=== PATIENT | female | born 1950 | race Caucasian/White ===

== ENCOUNTER 2024-05-15 13:05 | Inpatient (IN) ==
[2024-05-15 14:12] LABS: ABS Basophils 0.1 10^3/uL (0.0-0.1); ABS Eosinophils 0.3 10^3/uL (0.0-0.5); ABS Lymphocytes 1.5 10^3/uL (1.0-4.8); ABS Monocytes 0.6 10^3/uL (0.0-0.9); ABS Neutrophils 3.7 10^3/uL (1.5-7.6); Eosinophil % 5.5 %; Hematocrit 28.3 % (35-45); Hemoglobin 9.5 g/dL (11.5-14.3); Lymphocyte % 24.6 %; Mean Corpuscular Hemoglobin 32.3 pg (27-33); Mean Corpuscular Hgb Conc 33.4 g/dL (31-36); Mean Corpuscular Volume 96.7 fL (80-97); Mean Platelet Volume 9.7 fL (7.5-11.2); Platelet Count 177 10^3/uL (150-450); Red Blood Count 2.93 10^6/uL (3.63-4.92); Red Cell Distribution Width 14.3 % (12-17); White Blood Count 6.3 10^3/uL (3.8-11.8)
[2024-05-15] MEDS: NS 0.9% 1000 ml BAG 1,000 ML IV ONE (14:41)
[2024-05-15 14:45] LABS: Urine Appearance Clear; Urine Bacteria Absent /HPF (Absent); Urine Bilirubin Negative (Negative); Urine Blood Trace (Negative); Urine Color Light-Yellow; Urine Glucose 4+ (>=1000 mg/dL) (Negative); Urine Ketones Negative (Negative); Urine Nitrite Negative (Negative); Urine Protein 1+ (>=30 mg/dL) (Negative); Urine Red Blood Cell Absent /HPF (0-Trace); Urine Squamous Epithelial Cell Present /HPF (Absent); Urine Transitional Epithelial Present /HPF (Absent); Urine Urobilinogen Negative (Negative); Urine White Blood Cell Trace(0-5/hpf) /HPF (0-Trace); Urine pH 5.5 (5.0-8.0)
[2024-05-15 15:07] LABS: Albumin 4.1 g/dL (3.2-5.2); C Reactive Protein 3.08 mg/L (<8.01); Calcium 11.1 mg/dL (8.6-10.3); Creatinine, Serum 2.01 mg/dL (0.51-0.95); Globulin 4.1 g/dL (2-4); Magnesium 1.1 mg/dL (1.9-2.7); Potassium 4.3 mmol/L (3.5-5.0); Total Bilirubin 0.4 mg/dL (0.2-1.0); Total Protein 8.2 g/dL (6.4-8.9); eGFR CKD-EPI 25.3 (>60)
[2024-05-15] MEDS: Magnesium Sulfate 2 gm BAG 2 GM/50 ML BAG IVPB ONE ×2 (17:23→21:27)
[2024-05-15] MEDS ORDERED: Acetaminophen IV 1 GM/100ML 1,000 MG/100 ML BAG IV PRN (18:26)
[2024-05-15] MEDS ORDERED: HYDROmorphone 0.5 MG/0.5 ML SYRINGE IV PRN (18:28)
[2024-05-15] MEDS ORDERED: Polyethylene Glycol 3350 17 GM PACKET PO PRN (19:26)
[2024-05-15] MEDS ORDERED: Senna TAB 8.6 mg TAB PO PRN (19:26)
[2024-05-15] MEDS ORDERED: Dextrose 50% Syringe 50 ml 25 GM/50 ML SYRINGE IV PUSH PRN (19:28)
[2024-05-15] MEDS ORDERED: Naloxone 0.4 mg VIAL 0.4 mg/ml 1 ml VIAL IV PUSH SCH (20:00)
[2024-05-15] MEDS: Ondansetron 4 mg VIAL 2 MG/ML 2 ml VIAL IV ONE (21:17)
[2024-05-15] MEDS: NS 0.9% 1000 ml BAG 1,000 ML IV SCH (21:27)
[2024-05-15] MEDS: Enoxaparin 30 MG/0.3 ML SYR SUBCUT SCH (21:28)
[2024-05-16 06:23] LABS: ABS Eosinophils 0.3 10^3/uL (0.0-0.5); ABS Lymphocytes 1.5 10^3/uL (1.0-4.8); ABS Monocytes 0.6 10^3/uL (0.0-0.9); ABS Neutrophils 3.1 10^3/uL (1.5-7.6); Eosinophil % 4.8 %; Hematocrit 25.3 % (35-45); Hemoglobin 8.1 g/dL (11.5-14.3); Lymphocyte % 27.6 %; Mean Corpuscular Hemoglobin 31.5 pg (27-33); Mean Corpuscular Hgb Conc 32.2 g/dL (31-36); Mean Corpuscular Volume 97.6 fL (80-97); Mean Platelet Volume 9.8 fL (7.5-11.2); Nucleated Red Blood Cells % 0.1 %/100WBC (0.0-0.8); Platelet Count 145 10^3/uL (150-450); Red Blood Count 2.59 10^6/uL (3.63-4.92); Red Cell Distribution Width 14.2 % (12-17); White Blood Count 5.5 10^3/uL (3.8-11.8)
[2024-05-16 06:53] LABS: Calcium 10.2 mg/dL (8.6-10.3); Creatinine, Serum 1.84 mg/dL (0.51-0.95); Magnesium 2.3 mg/dL (1.9-2.7); Phosphorus 4.8 mg/dL (2.5-5.0); Potassium 4.1 mmol/L (3.5-5.0); eGFR CKD-EPI 28.1 (>60)
[2024-05-16] MEDS: HYDROmorphone 0.5 MG/0.5 ML SYRINGE IV PRN ×2 (09:17→18:11)
[2024-05-16] MEDS: Ondansetron 4 mg VIAL 2 MG/ML 2 ml VIAL IV PRN (09:18)
[2024-05-16 10:15] LABS: Albumin 3.5 g/dL (3.2-5.2); Direct Bilirubin 0.1 mg/dL (0.03-0.18); Globulin 3.4 g/dL (2-4); Indirect Bilirubin 0.2 mg/dL (0.3-1.0); Total Bilirubin 0.3 mg/dL (0.2-1.0); Total Protein 6.9 g/dL (6.4-8.9)
[2024-05-16] MEDS ORDERED: NS 0.9% 1000 ml BAG 1,000 ML IV SCH (18:45)
[2024-05-16] MEDS: NS 0.9% 1000 ml BAG 1,000 ML IV SCH (19:25)
[2024-05-16] MEDS: Metoclopramide 5 MG/ML VIAL (10 mg) IV SLOW PU ONE (20:56)
[2024-05-16] MEDS: Heparin 5000 UNITS/ML 1 mL VIAL SUBCUT ONE (22:00)
[2024-05-17 05:12] LABS: ABS Eosinophils 0.2 10^3/uL (0.0-0.5); ABS Lymphocytes 1.4 10^3/uL (1.0-4.8); ABS Monocytes 0.5 10^3/uL (0.0-0.9); ABS Neutrophils 3.4 10^3/uL (1.5-7.6); Eosinophil % 3.4 %; Hematocrit 23.5 % (35-45); Lymphocyte % 25.2 %; Mean Corpuscular Hemoglobin 32.9 pg (27-33); Mean Corpuscular Volume 96.9 fL (80-97); Mean Platelet Volume 9.6 fL (7.5-11.2); Nucleated Red Blood Cells % 0.1 %/100WBC (0.0-0.8); Platelet Count 127 10^3/uL (150-450); Red Blood Count 2.43 10^6/uL (3.63-4.92); Red Cell Distribution Width 14.6 % (12-17); White Blood Count 5.4 10^3/uL (3.8-11.8)
[2024-05-17 05:49] LABS: Calcium 9.8 mg/dL (8.6-10.3); Creatinine, Serum 1.93 mg/dL (0.51-0.95); Potassium 4.1 mmol/L (3.5-5.0); eGFR CKD-EPI 26.5 (>60)
[2024-05-17] MEDS: Lidocaine 2% PF 5 ML VIAL INJ ONE ×2 (07:42→10:11)
[2024-05-17 09:02] LABS: Phosphorus 4.4 mg/dL (2.5-5.0)
[2024-05-17 09:30] LABS: Vitamin D Total 25(OH) 8.5 ng/mL (20-50)
[2024-05-17 12:47] LABS: Calcium (PTH Intact) 9.5 mg/dL (8.6-10.3)
[2024-05-17] MEDS: NS 0.9% 1000 ml BAG 1,000 ML IV SCH (22:28)
[2024-05-18 06:16] LABS: ABS Eosinophils 0.2 10^3/uL (0.0-0.5); ABS Lymphocytes 1.2 10^3/uL (1.0-4.8); ABS Monocytes 0.6 10^3/uL (0.0-0.9); ABS Neutrophils 3.7 10^3/uL (1.5-7.6); ABS Nucleated RBC 0.01 10^3/ul; Eosinophil % 4.2 %; Hematocrit 23.1 % (35-45); Hemoglobin 7.8 g/dL (11.5-14.3); Lymphocyte % 20.8 %; Mean Corpuscular Hgb Conc 33.9 g/dL (31-36); Mean Corpuscular Volume 97.5 fL (80-97); Mean Platelet Volume 9.6 fL (7.5-11.2); Nucleated Red Blood Cells % 0.1 %/100WBC (0.0-0.8); Platelet Count 131 10^3/uL (150-450); Red Blood Count 2.37 10^6/uL (3.63-4.92); Red Cell Distribution Width 14.1 % (12-17); White Blood Count 5.7 10^3/uL (3.8-11.8)
[2024-05-18 06:42] LABS: Calcium 9.9 mg/dL (8.6-10.3); Creatinine, Serum 1.84 mg/dL (0.51-0.95); Magnesium 1.4 mg/dL (1.9-2.7); Potassium 3.8 mmol/L (3.5-5.0); eGFR CKD-EPI 28.1 (>60)
[2024-05-18 07:08] LABS: Folate 14.5 ng/mL (5.90-24.80)
[2024-05-18] MEDS: Magnesium Sulf 4 GM/100 ML IV 4,000 MG/100 ML BAG IVPB ONE (09:10)
[2024-05-18] MEDS: NS 0.9% 1000 ml BAG 1,000 ML IV ONE (09:10)
[2024-05-18] MEDS ORDERED: Ondansetron 4 mg VIAL 2 MG/ML 2 ml VIAL IV PRN ×2 (09:25→15:47)
[2024-05-18 10:03] LABS: Albumin 3.2 g/dL (3.2-5.2); Direct Bilirubin 0.1 mg/dL (0.03-0.18); Globulin 3.2 g/dL (2-4); Indirect Bilirubin 0.3 mg/dL (0.3-1.0); Total Bilirubin 0.4 mg/dL (0.2-1.0); Total Protein 6.4 g/dL (6.4-8.9)
[2024-05-18] MEDS: Enoxaparin 30 MG/0.3 ML SYR SUBCUT SCH (16:28)
[2024-05-18] MEDS: NS 0.9% 1000 ml BAG 1,000 ML IV SCH (17:22)
[2024-05-19] MEDS: hydrALAZINE 20 mg/ml 1 ML Vial IV IV SLOW PU ONE (03:01)
[2024-05-19 05:46] LABS: ABS Eosinophils 0.3 10^3/uL (0.0-0.5); ABS Monocytes 0.4 10^3/uL (0.0-0.9); ABS Neutrophils 3.4 10^3/uL (1.5-7.6); Eosinophil % 5.1 %; Hematocrit 24.3 % (35-45); Hemoglobin 8.2 g/dL (11.5-14.3); Lymphocyte % 19.5 %; Mean Corpuscular Hemoglobin 32.7 pg (27-33); Mean Corpuscular Hgb Conc 33.9 g/dL (31-36); Mean Corpuscular Volume 96.5 fL (80-97); Mean Platelet Volume 9.4 fL (7.5-11.2); Nucleated Red Blood Cells % 0.1 %/100WBC (0.0-0.8); Platelet Count 141 10^3/uL (150-450); Red Blood Count 2.52 10^6/uL (3.63-4.92); Red Cell Distribution Width 14.5 % (12-17); White Blood Count 5.1 10^3/uL (3.8-11.8)
[2024-05-19 06:01] LABS: Albumin 3.2 g/dL (3.2-5.2); Calcium 9.3 mg/dL (8.6-10.3); Creatinine, Serum 1.68 mg/dL (0.51-0.95); Globulin 3.2 g/dL (2-4); Magnesium 1.9 mg/dL (1.9-2.7); Potassium 3.4 mmol/L (3.5-5.0); Total Bilirubin 0.4 mg/dL (0.2-1.0); Total Protein 6.4 g/dL (6.4-8.9); eGFR CKD-EPI 31.3 (>60)
[2024-05-19] MEDS: Labetalol IV 5 MG/ML 20 ml VIAL IV PUSH ONE (06:25)
[2024-05-19] MEDS: NS 0.9% 1000 ml BAG 1,000 ML IV SCH (11:53)
[2024-05-19] MEDS: Dexamethasone IV 40 MG in NS 0.9% 50 ML 50 ML IVPB ONE (13:07)
[2024-05-20] MEDS: hydrALAZINE 20 mg/ml 1 ML Vial IV IV SLOW PU ONE (03:41)
[2024-05-20 07:41] LABS: Hematocrit 23.8 % (35-45); Hemoglobin 7.9 g/dL (11.5-14.3); Mean Corpuscular Hemoglobin 32.2 pg (27-33); Mean Corpuscular Hgb Conc 33.3 g/dL (31-36); Mean Corpuscular Volume 96.6 fL (80-97); Mean Platelet Volume 10.3 fL (7.5-11.2); Platelet Count 146 10^3/uL (150-450); Red Blood Count 2.46 10^6/uL (3.63-4.92); Red Cell Distribution Width 14.1 % (12-17); White Blood Count 5.5 10^3/uL (3.8-11.8)
[2024-05-20 07:54] LABS: Albumin 3.2 g/dL (3.2-5.2); Calcium 9.3 mg/dL (8.6-10.3); Creatinine, Serum 1.59 mg/dL (0.51-0.95); Globulin 3.3 g/dL (2-4); Potassium 3.8 mmol/L (3.5-5.0); Total Bilirubin 0.3 mg/dL (0.2-1.0); Total Protein 6.5 g/dL (6.4-8.9); eGFR CKD-EPI 33.5 (>60)
[2024-05-20] MEDS ORDERED: Dextrose 50% Syringe 50 ml 25 GM/50 ML SYRINGE IV PUSH PRN (12:26)
[2024-05-20] MEDS: Senna TAB 8.6 mg TAB PO SCH (20:41)
[2024-05-21 06:38] LABS: Hematocrit 22.1 % (35-45); Hemoglobin 7.3 g/dL (11.5-14.3); Mean Corpuscular Hemoglobin 32.1 pg (27-33); Mean Corpuscular Volume 97.5 fL (80-97); Mean Platelet Volume 9.7 fL (7.5-11.2); Platelet Count 158 10^3/uL (150-450); Red Blood Count 2.27 10^6/uL (3.63-4.92); Red Cell Distribution Width 14.6 % (12-17); White Blood Count 7.2 10^3/uL (3.8-11.8)
[2024-05-21 07:11] LABS: Albumin 3.2 g/dL (3.2-5.2); Albumin/Globulin Ratio 1.1 (1-3); Calcium 9.1 mg/dL (8.6-10.3); Creatinine, Serum 2.03 mg/dL (0.51-0.95); Potassium 3.6 mmol/L (3.5-5.0); Total Bilirubin 0.2 mg/dL (0.2-1.0); Total Protein 6.2 g/dL (6.4-8.9)
[2024-05-21 08:26] LABS: INR 1.03 (0.85-1.14)
[2024-05-21] MEDS: Polyethylene Glycol 3350 17 GM PACKET PO SCH (08:33)
[2024-05-21] MEDS: Insulin GLARGINE 100 un/ml 10 ml VIAL SUBCUT SCH (08:33)
[2024-05-21] MEDS ORDERED: oxyCODONE/Acetamin 5/325 mg TAB PO PRN (13:42)
[2024-05-21] MEDS: NS 0.9% 1000 ml BAG 1,000 ML IV SCH (15:30)
[2024-05-21] MEDS: fentaNYL 100 mcg/2 ml 50 MCG/ML VIAL ONE (23:40)
[2024-05-22 05:27] LABS: Hematocrit 25.3 % (35-45); Hemoglobin 8.4 g/dL (11.5-14.3); Mean Corpuscular Hemoglobin 31.5 pg (27-33); Mean Corpuscular Hgb Conc 33.2 g/dL (31-36); Mean Corpuscular Volume 94.7 fL (80-97); Mean Platelet Volume 9.6 fL (7.5-11.2); Platelet Count 152 10^3/uL (150-450); Red Blood Count 2.68 10^6/uL (3.63-4.92); Red Cell Distribution Width 16.6 % (12-17); White Blood Count 7.3 10^3/uL (3.8-11.8)
[2024-05-22 06:55] LABS: Creatinine, Serum 1.97 mg/dL (0.51-0.95); Potassium 3.7 mmol/L (3.5-5.0); eGFR CKD-EPI 25.9 (>60)
[2024-05-22] MEDS: Insulin GLARGINE 100 un/ml 10 ml VIAL SUBCUT SCH (08:14)
[2024-05-22 12:02] LABS: Uric Acid 5.5 mg/dL (2.3-6.6)
[2024-05-22 12:27] LABS: Calcium 8.8 mg/dL (8.6-10.3)
[2024-05-22] MEDS: Lactated Ringers 1000 ml BAG 1,000 ML IV SCH (12:30)
[2024-05-22] MEDS: oxyCODONE/Acetamin 5/325 mg TAB PO PRN (17:00)
[2024-05-23 06:22] LABS: ABS Eosinophils 0.4 10^3/uL (0.0-0.5); ABS Lymphocytes 1.3 10^3/uL (1.0-4.8); ABS Monocytes 0.6 10^3/uL (0.0-0.9); ABS Neutrophils 4.3 10^3/uL (1.5-7.6); Eosinophil % 5.5 %; Hematocrit 26.4 % (35-45); Hemoglobin 8.9 g/dL (11.5-14.3); Lymphocyte % 20.1 %; Mean Corpuscular Hemoglobin 31.8 pg (27-33); Mean Corpuscular Hgb Conc 33.6 g/dL (31-36); Mean Corpuscular Volume 94.5 fL (80-97); Mean Platelet Volume 9.8 fL (7.5-11.2); Platelet Count 145 10^3/uL (150-450); Red Blood Count 2.79 10^6/uL (3.63-4.92); Red Cell Distribution Width 16.4 % (12-17); White Blood Count 6.6 10^3/uL (3.8-11.8)
[2024-05-23 07:24] LABS: Calcium 8.7 mg/dL (8.6-10.3); Creatinine, Serum 1.73 mg/dL (0.51-0.95); eGFR CKD-EPI 30.2 (>60)
[2024-05-23] MEDS: Influenza Vaccine *TRI* 2024-25* 0.5 ML SYRINGE IM ONE (08:16)
[2024-05-23] MEDS: COVID VAC 24-25 (12+) (Moderna) Syringe 0.5 mL IM ONE (08:18)
[2024-05-23] MEDS: Lactated Ringers 1000 ml BAG 1,000 ML IV SCH (11:06)
[2024-05-23 22:40] LABS: Result Summary Normal
[2024-05-24 05:43] LABS: ABS Eosinophils 0.3 10^3/uL (0.0-0.5); ABS Lymphocytes 0.6 10^3/uL (1.0-4.8); ABS Monocytes 0.7 10^3/uL (0.0-0.9); ABS Neutrophils 4.5 10^3/uL (1.5-7.6); ABS Nucleated RBC 0.01 10^3/ul; Eosinophil % 4.6 %; Hemoglobin 9.1 g/dL (11.5-14.3); Lymphocyte % 9.9 %; Mean Corpuscular Hemoglobin 31.8 pg (27-33); Mean Corpuscular Hgb Conc 33.9 g/dL (31-36); Mean Corpuscular Volume 93.9 fL (80-97); Mean Platelet Volume 9.2 fL (7.5-11.2); Nucleated Red Blood Cells % 0.1 %/100WBC (0.0-0.8); Platelet Count 150 10^3/uL (150-450); Red Blood Count 2.87 10^6/uL (3.63-4.92); Red Cell Distribution Width 15.9 % (12-17)
[2024-05-24 05:59] LABS: Creatinine, Serum 1.5 mg/dL (0.51-0.95); Potassium 3.6 mmol/L (3.5-5.0); eGFR CKD-EPI 35.9 (>60)
[2024-05-24] MEDS: Dexamethasone IV 4 MG/ML 5 ML VIAL (20 MG) IVPB ONE (14:38)
[2024-05-24] MEDS: BORTEZOMIB SUBCUT ONE (15:10)
[2024-05-24] MEDS: Lactated Ringers 1000 ml BAG 1,000 ML IV SCH (16:10)
[2024-05-24] MEDS: Metoclopramide 5 MG/ML VIAL (10 mg) IV PRN (17:26)
[2024-05-25 06:53] LABS: ABS Lymphocytes 0.8 10^3/uL (1.0-4.8); ABS Monocytes 0.3 10^3/uL (0.0-0.9); ABS Neutrophils 4.4 10^3/uL (1.5-7.6); ABS Nucleated RBC 0.01 10^3/ul; Eosinophil % 0.1 %; Hematocrit 27.3 % (35-45); Hemoglobin 9.2 g/dL (11.5-14.3); Lymphocyte % 14.6 %; Mean Corpuscular Hemoglobin 31.7 pg (27-33); Mean Corpuscular Hgb Conc 33.7 g/dL (31-36); Mean Corpuscular Volume 93.8 fL (80-97); Mean Platelet Volume 9.7 fL (7.5-11.2); Nucleated Red Blood Cells % 0.1 %/100WBC (0.0-0.8); Platelet Count 139 10^3/uL (150-450); Red Blood Count 2.91 10^6/uL (3.63-4.92); Red Cell Distribution Width 15.6 % (12-17); White Blood Count 5.5 10^3/uL (3.8-11.8)
[2024-05-25 07:15] LABS: Calcium 8.8 mg/dL (8.6-10.3); Creatinine, Serum 1.53 mg/dL (0.51-0.95)
[2024-05-25] MEDS: Lactated Ringers 1000 ml BAG 1,000 ML IV SCH (15:13)
[2024-05-26 06:10] LABS: ABS Lymphocytes 1.2 10^3/uL (1.0-4.8); ABS Monocytes 0.9 10^3/uL (0.0-0.9); ABS Neutrophils 4.5 10^3/uL (1.5-7.6); Eosinophil % 0.7 %; Hematocrit 29.1 % (35-45); Hemoglobin 9.8 g/dL (11.5-14.3); Lymphocyte % 18.3 %; Mean Corpuscular Hemoglobin 31.7 pg (27-33); Mean Corpuscular Hgb Conc 33.7 g/dL (31-36); Mean Corpuscular Volume 94.1 fL (80-97); Platelet Count 165 10^3/uL (150-450); Red Cell Distribution Width 15.7 % (12-17); White Blood Count 6.7 10^3/uL (3.8-11.8)
[2024-05-26 07:06] LABS: Creatinine, Serum 1.44 mg/dL (0.51-0.95); Potassium 3.7 mmol/L (3.5-5.0); eGFR CKD-EPI 37.7 (>60)
[2024-05-26] MEDS ORDERED: Sevoflurane BOTTLE ONE (07:29)
[2024-05-26] MEDS ORDERED: Lidocaine 2% PF 5 ML VIAL ONE (07:29)
[2024-05-26] MEDS ORDERED: Dexamethasone IV 4 MG/ML VIAL 1 ml VIAL ONE (07:29)
[2024-05-26] MEDS ORDERED: Ondansetron 4 mg VIAL 2 MG/ML 2 ml VIAL ONE ×2 (07:29→13:48)
[2024-05-26] MEDS ORDERED: Propofol 10 MG/ML 20 ML BTL ONE (07:29)
[2024-05-26] MEDS ORDERED: Rocuronium 50 mg VIAL 10 mg/ml 5 ml VIAL (50 mg) ONE ×2 (07:30→11:22)
[2024-05-26] MEDS ORDERED: KETAMINE HCL 10 MG/ML 20 ml VIAL (200 MG) ONE (07:35)
[2024-05-26] MEDS ORDERED: fentaNYL 100 mcg/2 ml 50 MCG/ML VIAL ONE ×3 (07:35→13:02)
[2024-05-26] MEDS ORDERED: Lidocaine 1% w EPI 1:200,000 SDV 30 ML VIAL ONE (07:57)
[2024-05-26] MEDS ORDERED: Naloxone 0.4 mg VIAL 0.4 mg/ml 1 ml VIAL IV PRN (08:05)
[2024-05-26] MEDS ORDERED: HYDROmorphone 1 MG/1 ML SYRINGE IV PRN (08:05)
[2024-05-26] MEDS ORDERED: ceFAZolin 2 GM PREMIX 2 GM/50 ML BAG ONE (08:13)
[2024-05-26] MEDS ORDERED: Succinylcholine 200 mg VIAL 20 mg/ml 10 ml VIAL (200 mg) ONE (08:34)
[2024-05-26] MEDS ORDERED: Phenylephrine IV 10 MG/ML 1 ml VIAL ONE ×2 (08:57→11:39)
[2024-05-26] MEDS ORDERED: Acetaminophen IV 1 GM/100ML 1,000 MG/100 ML BAG IV ONE (09:29)
[2024-05-26 13:01] LABS: Hematocrit 26.8 % (35-45); Hemoglobin 8.5 g/dL (11.5-14.3); Mean Corpuscular Hemoglobin 30.3 pg (27-33); Mean Corpuscular Hgb Conc 31.6 g/dL (31-36); Mean Corpuscular Volume 95.7 fL (80-97); Mean Platelet Volume 9.1 fL (7.5-11.2); Platelet Count 160 10^3/uL (150-450); Red Cell Distribution Width 16.1 % (12-17); White Blood Count 12.5 10^3/uL (3.8-11.8)
[2024-05-26] MEDS: fentaNYL 100 mcg/2 ml 50 MCG/ML VIAL IV PRN (13:05)
[2024-05-26] MEDS ORDERED: Metoclopramide 5 MG/ML VIAL (10 mg) ONE (13:48)
[2024-05-26] MEDS: Metoclopramide 5 MG/ML VIAL (10 mg) IV PRN (13:50)
[2024-05-26] MEDS: Ondansetron 4 mg VIAL 2 MG/ML 2 ml VIAL IV PRN (13:50)
[2024-05-26] MEDS: Lactated Ringers 1000 ml BAG 1,000 ML IV ONE (20:00)
[2024-05-27 08:08] LABS: Calcium 7.6 mg/dL (8.6-10.3); Creatinine, Serum 1.85 mg/dL (0.51-0.95); Potassium 4.2 mmol/L (3.5-5.0); eGFR CKD-EPI 27.9 (>60)
[2024-05-27 08:21] LABS: Hemoglobin 6.7 g/dL (11.5-14.3); Mean Corpuscular Hemoglobin 31.8 pg (27-33); Mean Corpuscular Hgb Conc 33.7 g/dL (31-36); Mean Corpuscular Volume 94.5 fL (80-97); Red Blood Count 2.12 10^6/uL (3.63-4.92); Red Cell Distribution Width 15.4 % (12-17); White Blood Count 7.4 10^3/uL (3.8-11.8)
[2024-05-27 09:17] LABS: Mean Platelet Volume 9.8 fL (7.5-11.2); Platelet Count 90 10^3/uL (150-450)
[2024-05-27 17:11] LABS: Hematocrit 22.2 % (35-45); Hemoglobin 7.5 g/dL (11.5-14.3)
[2024-05-28 07:09] LABS: Hematocrit 19.4 % (35-45); Hemoglobin 6.6 g/dL (11.5-14.3); Mean Corpuscular Volume 94.1 fL (80-97); Red Blood Count 2.06 10^6/uL (3.63-4.92); Red Cell Distribution Width 15.6 % (12-17); White Blood Count 7.3 10^3/uL (3.8-11.8)
[2024-05-28 07:18] LABS: Albumin 2.7 g/dL (3.2-5.2); Calcium 7.3 mg/dL (8.6-10.3); Creatinine, Serum 1.74 mg/dL (0.51-0.95); Globulin 2.6 g/dL (2-4); Potassium 3.7 mmol/L (3.5-5.0); Total Bilirubin 0.4 mg/dL (0.2-1.0); Total Protein 5.3 g/dL (6.4-8.9)
[2024-05-28 08:02] LABS: Mean Platelet Volume 10.6 fL (7.5-11.2); Platelet Count 66 10^3/uL (150-450)
[2024-05-28] MEDS: HYDROmorphone 0.5 MG/0.5 ML SYRINGE IV ONE (12:16)
[2024-05-28] MEDS: HYDROmorphone 0.5 MG/0.5 ML SYRINGE IV PRN (16:42)
[2024-05-28] MEDS: Acetaminophen IV 1 GM/100ML 1,000 MG/100 ML BAG IV SCH (17:05)
[2024-05-28 19:18] LABS: Hematocrit 23.2 % (35-45); Hemoglobin 7.8 g/dL (11.5-14.3)
[2024-05-29 06:04] LABS: Hematocrit 22.1 % (35-45); Hemoglobin 7.4 g/dL (11.5-14.3); Mean Corpuscular Hemoglobin 30.5 pg (27-33); Mean Corpuscular Hgb Conc 33.2 g/dL (31-36); Mean Corpuscular Volume 91.6 fL (80-97); Red Blood Count 2.42 10^6/uL (3.63-4.92); Red Cell Distribution Width 17.1 % (12-17); White Blood Count 7.2 10^3/uL (3.8-11.8)
[2024-05-29 06:12] LABS: Calcium 7.5 mg/dL (8.6-10.3); Creatinine, Serum 1.53 mg/dL (0.51-0.95); Potassium 3.4 mmol/L (3.5-5.0)
[2024-05-29 06:57] LABS: ABS Eosinophils 0.2 10^3/uL (0.0-0.5); ABS Lymphocytes 0.7 10^3/uL (1.0-4.8); ABS Monocytes 0.5 10^3/uL (0.0-0.9); ABS Neutrophils 5.7 10^3/uL (1.5-7.6); ABS Nucleated RBC 0.02 10^3/ul; Eosinophil % 2.3 %; Mean Platelet Volume 10.2 fL (7.5-11.2); Nucleated Red Blood Cells % 0.2 %/100WBC (0.0-0.8); Platelet Count 79 10^3/uL (150-450)
[2024-05-29 11:20] LABS: BM Result Summary Normal
[2024-05-29] MEDS: KCL 20 MEQ/100 ML IVPREMIX 20 MEQ/100 ML BAG IV ONE (13:10)
[2024-05-29] MEDS: Dexamethasone IV 4 MG/ML VIAL 1 ml VIAL IV SLOW PU ONE (13:11)
[2024-05-29 18:46] LABS: Hematocrit 28.9 % (35-45); Hemoglobin 9.7 g/dL (11.5-14.3)
[2024-05-29] MEDS: Polyethylene Glycol 3350 17 GM PACKET PO ONE (21:37)
[2024-05-30 06:23] LABS: ABS Lymphocytes 0.4 10^3/uL (1.0-4.8); ABS Monocytes 0.4 10^3/uL (0.0-0.9); ABS Neutrophils 6.5 10^3/uL (1.5-7.6); ABS Nucleated RBC 0.01 10^3/ul; Hemoglobin 10.4 g/dL (11.5-14.3); Lymphocyte % 5.7 %; Mean Corpuscular Hgb Conc 34.6 g/dL (31-36); Mean Corpuscular Volume 89.5 fL (80-97); Mean Platelet Volume 10.3 fL (7.5-11.2); Nucleated Red Blood Cells % 0.1 %/100WBC (0.0-0.8); Platelet Count 112 10^3/uL (150-450); Red Blood Count 3.35 10^6/uL (3.63-4.92); White Blood Count 7.4 10^3/uL (3.8-11.8)
[2024-05-30 06:44] LABS: Calcium 8.1 mg/dL (8.6-10.3); Creatinine, Serum 1.29 mg/dL (0.51-0.95); Globulin 3.1 g/dL (2-4); Magnesium 1.4 mg/dL (1.9-2.7); Potassium 3.9 mmol/L (3.5-5.0); Total Bilirubin 0.9 mg/dL (0.2-1.0); Total Protein 6.1 g/dL (6.4-8.9)
[2024-05-30] MEDS: Magnesium Sulf 4 GM/100 ML IV 4,000 MG/100 ML BAG IVPB ONE (09:36)
[2024-05-31] MEDS: Ondansetron 4 mg VIAL 2 MG/ML 2 ml VIAL IV PRN (04:09)
[2024-05-31 06:58] LABS: ABS Eosinophils 0.1 10^3/uL (0.0-0.5); ABS Lymphocytes 0.9 10^3/uL (1.0-4.8); ABS Monocytes 0.4 10^3/uL (0.0-0.9); ABS Neutrophils 5.9 10^3/uL (1.5-7.6); ABS Nucleated RBC 0.01 10^3/ul; Eosinophil % 1.9 %; Hematocrit 26.4 % (35-45); Lymphocyte % 12.3 %; Mean Corpuscular Hemoglobin 30.9 pg (27-33); Mean Corpuscular Hgb Conc 34.2 g/dL (31-36); Mean Corpuscular Volume 90.3 fL (80-97); Mean Platelet Volume 9.2 fL (7.5-11.2); Nucleated Red Blood Cells % 0.1 %/100WBC (0.0-0.8); Platelet Count 146 10^3/uL (150-450); Red Blood Count 2.93 10^6/uL (3.63-4.92); Red Cell Distribution Width 16.9 % (12-17); White Blood Count 7.3 10^3/uL (3.8-11.8)
[2024-05-31 07:19] LABS: Albumin 2.8 g/dL (3.2-5.2); Creatinine, Serum 1.36 mg/dL (0.51-0.95); Globulin 2.8 g/dL (2-4); Magnesium 2.1 mg/dL (1.9-2.7); Potassium 3.3 mmol/L (3.5-5.0); Total Bilirubin 0.7 mg/dL (0.2-1.0); Total Protein 5.6 g/dL (6.4-8.9); eGFR CKD-EPI 40.4 (>60)
[2024-05-31] MEDS: Dexamethasone IV 4 MG/ML VIAL 1 ml VIAL IV SLOW PU ONE (08:04)
[2024-05-31] MEDS: BORTEZOMIB SUBCUT ONE (08:19)
[2024-05-31] MEDS: Potassium Chloride LIQUID 20 MEQ/15 ML LIQUID PO ONE (10:17)
[2024-06-01 06:31] LABS: ABS Lymphocytes 0.5 10^3/uL (1.0-4.8); ABS Monocytes 0.4 10^3/uL (0.0-0.9); ABS Neutrophils 5.4 10^3/uL (1.5-7.6); ABS Nucleated RBC 0.01 10^3/ul; Hematocrit 26.1 % (35-45); Hemoglobin 8.7 g/dL (11.5-14.3); Lymphocyte % 7.4 %; Mean Corpuscular Hemoglobin 30.1 pg (27-33); Mean Corpuscular Hgb Conc 33.4 g/dL (31-36); Mean Corpuscular Volume 90.1 fL (80-97); Mean Platelet Volume 8.6 fL (7.5-11.2); Nucleated Red Blood Cells % 0.1 %/100WBC (0.0-0.8); Platelet Count 142 10^3/uL (150-450); Red Cell Distribution Width 16.5 % (12-17); White Blood Count 6.3 10^3/uL (3.8-11.8)
[2024-06-01 07:01] LABS: Calcium 7.8 mg/dL (8.6-10.3); Creatinine, Serum 1.58 mg/dL (0.51-0.95); Globulin 2.9 g/dL (2-4); Magnesium 1.9 mg/dL (1.9-2.7); Potassium 3.8 mmol/L (3.5-5.0); Total Bilirubin 0.6 mg/dL (0.2-1.0); Total Protein 5.9 g/dL (6.4-8.9); eGFR CKD-EPI 33.7 (>60)
[2024-06-02 06:43] LABS: ABS Eosinophils 0.1 10^3/uL (0.0-0.5); ABS Lymphocytes 0.8 10^3/uL (1.0-4.8); ABS Monocytes 0.3 10^3/uL (0.0-0.9); ABS Neutrophils 3.5 10^3/uL (1.5-7.6); ABS Nucleated RBC 0.01 10^3/ul; Eosinophil % 2.1 %; Hematocrit 25.3 % (35-45); Hemoglobin 8.6 g/dL (11.5-14.3); Lymphocyte % 16.6 %; Mean Corpuscular Hemoglobin 30.9 pg (27-33); Mean Corpuscular Hgb Conc 33.9 g/dL (31-36); Mean Corpuscular Volume 91.1 fL (80-97); Mean Platelet Volume 8.6 fL (7.5-11.2); Nucleated Red Blood Cells % 0.1 %/100WBC (0.0-0.8); Platelet Count 122 10^3/uL (150-450); Red Blood Count 2.78 10^6/uL (3.63-4.92); Red Cell Distribution Width 16.7 % (12-17); White Blood Count 4.6 10^3/uL (3.8-11.8)
[2024-06-02 07:09] LABS: Albumin 2.8 g/dL (3.2-5.2); Albumin/Globulin Ratio 1.1 (1-3); Calcium 7.8 mg/dL (8.6-10.3); Creatinine, Serum 1.26 mg/dL (0.51-0.95); Globulin 2.6 g/dL (2-4); Magnesium 1.6 mg/dL (1.9-2.7); Potassium 3.8 mmol/L (3.5-5.0); Total Bilirubin 0.5 mg/dL (0.2-1.0); Total Protein 5.4 g/dL (6.4-8.9); eGFR CKD-EPI 44.2 (>60)
[2024-06-02] MEDS: Magnesium Sulf 4 GM/100 ML IV 4,000 MG/100 ML BAG IVPB ONE (10:58)
[2024-06-02] MEDS: Potassium Chlor 20 meq TAB.ER PO ONE (11:06)
[2024-06-03 06:51] LABS: Magnesium 2.2 mg/dL (1.9-2.7); Potassium 4.3 mmol/L (3.5-5.0)
[2024-06-03] MEDS: Glycerin ADULT 2.4 gm SUPP PR ONE (20:46)
[2024-06-04 06:04] LABS: ABS Eosinophils 0.2 10^3/uL (0.0-0.5); ABS Lymphocytes 0.5 10^3/uL (1.0-4.8); ABS Monocytes 0.3 10^3/uL (0.0-0.9); ABS Neutrophils 3.4 10^3/uL (1.5-7.6); ABS Nucleated RBC 0.01 10^3/ul; Eosinophil % 3.8 %; Hemoglobin 9.1 g/dL (11.5-14.3); Lymphocyte % 11.9 %; Mean Corpuscular Hgb Conc 33.8 g/dL (31-36); Mean Corpuscular Volume 91.6 fL (80-97); Mean Platelet Volume 9.5 fL (7.5-11.2); Nucleated Red Blood Cells % 0.2 %/100WBC (0.0-0.8); Platelet Count 119 10^3/uL (150-450); Red Blood Count 2.95 10^6/uL (3.63-4.92); Red Cell Distribution Width 16.3 % (12-17); White Blood Count 4.4 10^3/uL (3.8-11.8)
[2024-06-04 06:22] LABS: Albumin 2.9 g/dL (3.2-5.2); Albumin/Globulin Ratio 1.1 (1-3); Calcium 8.6 mg/dL (8.6-10.3); Creatinine, Serum 1.17 mg/dL (0.51-0.95); Globulin 2.6 g/dL (2-4); Magnesium 1.8 mg/dL (1.9-2.7); Potassium 4.4 mmol/L (3.5-5.0); Total Bilirubin 0.7 mg/dL (0.2-1.0); Total Protein 5.5 g/dL (6.4-8.9); eGFR CKD-EPI 48.4 (>60)
[2024-06-04] MEDS: Magnesium Sulfate 2 gm BAG 2 GM/50 ML BAG IVPB ONE (07:49)
[2024-06-04] MEDS: Sodium Phosphate ADULT ENEMA 133 ML BTL PR ONE (09:34)
[2024-06-04 10:14] LABS: Rapid COVID-19 Molecular Undetected (Undetected)
[2024-06-04 10:23] VITALS: BP 131/61
== END 2024-06-04 13:25 | DRG 823 ==
LOC: EDHOLD 13:05 → ED 13:05 → MED 19:21 → SUATTDRO 05-17 12:00 → MED 05-24 12:49
PROVIDERS: ADMIT Internal Medicine; ATTEND Internal Medicine

== ENCOUNTER 2024-06-22 09:10 | Observation (INO) ==
[2024-06-22] MEDS ORDERED: Magnesium Sulfate IV 0.5 GM/ML 2 ml VIAL (1 gm) ONE (10:45)
[2024-06-22 11:01] LABS: ABS Eosinophils 0.1 10^3/uL (0.0-0.5); ABS Lymphocytes 0.5 10^3/uL (1.0-4.8); ABS Monocytes 0.2 10^3/uL (0.0-0.9); ABS Neutrophils 1.1 10^3/uL (1.5-7.6); Eosinophil % 4.8 %; Hemoglobin 10.8 g/dL (11.5-14.3); Lymphocyte % 24.8 %; Mean Corpuscular Hemoglobin 30.5 pg (27-33); Mean Corpuscular Hgb Conc 32.6 g/dL (31-36); Mean Corpuscular Volume 93.5 fL (80-97); Mean Platelet Volume 10.4 fL (7.5-11.2); Platelet Count 169 10^3/uL (150-450); Red Blood Count 3.53 10^6/uL (3.63-4.92); Red Cell Distribution Width 17.4 % (12-17); White Blood Count 1.8 10^3/uL (3.8-11.8)
[2024-06-22 11:16] LABS: AST 16 U/L (13-39); Albumin 3.3 g/dL (3.2-5.2); Albumin/Globulin Ratio 0.9 (1-3); Alkaline Phosphatase 124 U/L (35-149); Anion Gap 6 mmol/L (2-16); Blood Urea Nitrogen 18 mg/dL (6-24); CO2 Carbon Dioxide 28 mmol/L (22-32); Chloride 108 mmol/L (101-111); Globulin 3.7 g/dL (2-4); Glucose 201 mg/dL (70-100); Potassium 3.7 mmol/L (3.5-5.0); Sodium 142 mmol/L (135-145); Total Bilirubin 0.9 mg/dL (0.2-1.0); eGFR CKD-EPI 42.6 (>60)
[2024-06-22 11:17] LABS: ALT < 7 U/L (7-52)
[2024-06-22 12:56] LABS: Urine Appearance Cloudy; Urine Bilirubin 1+ (Small) (Negative); Urine Color Yellow; Urine Ketones Negative (Negative); Urine Nitrite Negative (Negative); Urine Specific Gravity 1.025 (1.005-1.030); Urine Urobilinogen 0.2 (Negative) (Negative); Urine pH 5.5 (5.0-8.0)
[2024-06-22 12:57] LABS: Urine Protein 1+ (30 mg/dL) (Negative)
[2024-06-22 13:03] LABS: Urine White Blood Cell 3+(>20/hpf) (Absent)
[2024-06-22 13:04] LABS: Urine Bacteria 2+ (Absent); Urine Red Blood Cell Trace(0-2/hpf) (Absent); Urine Squamous Epithelial Cell Present (Absent)
[2024-06-22 13:12] LABS: Immature Retic Fraction 0.48
[2024-06-22 13:20] LABS: % Iron Saturation 14 % (15-55); .Transferrin 196 mg/dL (203-362); Iron 37 ug/dL (50-212); Magnesium 1.3 mg/dL (1.9-2.7); Total Iron Binding Capacity 274 mcg/dL (250-450); Unsaturated Iron Binding 237 ug/dL
[2024-06-22 13:28] LABS: Hematocrit for Retic CNT 29.3 % (35-45); RBC Retic Count 3.12 10^6/ul (3.63-4.92)
[2024-06-22] MEDS ORDERED: Ondansetron 4 mg VIAL 2 MG/ML 2 ml VIAL IV PRN (14:17)
[2024-06-22] MEDS ORDERED: Senna TAB 8.6 mg TAB PO PRN (15:20)
[2024-06-22] MEDS ORDERED: Dextrose 50% Syringe 50 ml 25 GM/50 ML SYRINGE IV PUSH PRN (16:56)
[2024-06-22] MEDS ORDERED: Meropenem 1 GM PREMIX 1 GM/50 ML BAG IV ONE (18:30)
[2024-06-22] MEDS ORDERED: Enoxaparin 30 MG/0.3 ML SYR SUBCUT SCH (18:30)
[2024-06-22] MEDS: NS 0.9% 1000 ml BAG 1,000 ML IV SCH (18:50)
[2024-06-22] MEDS: Enoxaparin 30 MG/0.3 ML SYR SUBCUT SCH (21:12)
[2024-06-22] MEDS: Meropenem 1 GM PREMIX(*) 1 GM/50 ML BAG IV SCH (21:12)
[2024-06-23] MEDS: NS 0.9% 1000 ml BAG 1,000 ML IV SCH (01:13)
[2024-06-23] MEDS ORDERED: Insulin GLARGINE 100 un/ml 10 ml VIAL SUBCUT SCH (09:00)
[2024-06-23] MEDS: Insulin GLARGINE 100 un/ml 10 ml VIAL SUBCUT SCH (09:18)
[2024-06-23 09:34] LABS: Hematocrit 26.5 % (35-45); Hemoglobin 8.9 g/dL (11.5-14.3); Mean Corpuscular Hemoglobin 31.6 pg (27-33); Mean Corpuscular Hgb Conc 33.6 g/dL (31-36); Mean Corpuscular Volume 93.9 fL (80-97); Mean Platelet Volume 9.5 fL (7.5-11.2); Platelet Count 167 10^3/uL (150-450); Red Blood Count 2.82 10^6/uL (3.63-4.92); Red Cell Distribution Width 17.6 % (12-17); White Blood Count 1.8 10^3/uL (3.8-11.8)
[2024-06-23] MEDS: Polyethylene Glycol 3350 17 GM PACKET PO SCH (09:41)
[2024-06-23 10:07] LABS: Albumin 3.2 g/dL (3.2-5.2); Albumin/Globulin Ratio 1.2 (1-3); Calcium 8.7 mg/dL (8.6-10.3); Creatinine, Serum 0.91 mg/dL (0.51-0.95); Globulin 2.7 g/dL (2-4); Magnesium 1.9 mg/dL (1.9-2.7); Total Bilirubin 0.5 mg/dL (0.2-1.0); Total Protein 5.9 g/dL (6.4-8.9); eGFR CKD-EPI 65.4 (>60)
[2024-06-23] MEDS ORDERED: Morphine 2 MG/ML SYRINGE IV PRN (10:07)
[2024-06-23] MEDS: Lactated Ringers 1000 ml BAG 1,000 ML IV SCH (10:29)
[2024-06-23 10:45] LABS: ABS Basophils 0.1 10^3/uL (0.0-0.1); ABS Eosinophils 0.1 10^3/uL (0.0-0.5); ABS Lymphocytes 0.4 10^3/uL (1.0-4.8); ABS Monocytes 0.2 10^3/uL (0.0-0.9); ABS Neutrophils 0.9 10^3/uL (1.5-7.6); Eosinophil % 5.8 %; Lymphocyte % 24.6 %; Nucleated Red Blood Cells % 0.1 %/100WBC (0.0-0.8)
[2024-06-23] MEDS: Iodixanol 320 (CONTRAST) 100 ML SDV IV ONE (11:46)
[2024-06-24 06:57] LABS: ABS Basophils 0.1 10^3/uL (0.0-0.1); ABS Eosinophils 0.1 10^3/uL (0.0-0.5); ABS Lymphocytes 0.4 10^3/uL (1.0-4.8); ABS Monocytes 0.2 10^3/uL (0.0-0.9); ABS Neutrophils 1.2 10^3/uL (1.5-7.6); Eosinophil % 4.9 %; Hematocrit 25.6 % (35-45); Hemoglobin 8.7 g/dL (11.5-14.3); Lymphocyte % 19.7 %; Mean Corpuscular Hemoglobin 31.8 pg (27-33); Mean Corpuscular Hgb Conc 33.9 g/dL (31-36); Mean Corpuscular Volume 93.9 fL (80-97); Nucleated Red Blood Cells % 0.1 %/100WBC (0.0-0.8); Platelet Count 203 10^3/uL (150-450); Red Blood Count 2.72 10^6/uL (3.63-4.92); Red Cell Distribution Width 17.2 % (12-17)
[2024-06-24 07:47] LABS: Calcium 9.2 mg/dL (8.6-10.3); Creatinine, Serum 0.84 mg/dL (0.51-0.95); Magnesium 1.5 mg/dL (1.9-2.7); Potassium 3.9 mmol/L (3.5-5.0)
[2024-06-24] MEDS: Magnesium Sulfate 2 gm BAG 2 GM/50 ML BAG IVPB ONE (08:56)
[2024-06-24] MEDS: Magnesium Sulfate IV 1GM/100ML 1 GM/100 ML BAG IV ONE (11:08)
[2024-06-25 06:59] LABS: Hematocrit 25.3 % (35-45); Hemoglobin 8.6 g/dL (11.5-14.3); Mean Corpuscular Hgb Conc 34.1 g/dL (31-36); Mean Corpuscular Volume 93.7 fL (80-97); Mean Platelet Volume 9.1 fL (7.5-11.2); Platelet Count 239 10^3/uL (150-450); Red Cell Distribution Width 17.5 % (12-17); White Blood Count 2.2 10^3/uL (3.8-11.8)
[2024-06-25 07:03] LABS: ABS Basophils 0.1 10^3/uL (0.0-0.1); ABS Eosinophils 0.1 10^3/uL (0.0-0.5); ABS Lymphocytes 0.4 10^3/uL (1.0-4.8); ABS Monocytes 0.2 10^3/uL (0.0-0.9); ABS Neutrophils 1.4 10^3/uL (1.5-7.6); ABS Nucleated RBC 0.01 10^3/ul; Eosinophil % 4.2 %; Lymphocyte % 18.2 %; Nucleated Red Blood Cells % 0.3 %/100WBC (0.0-0.8)
[2024-06-25 07:42] LABS: Calcium 9.3 mg/dL (8.6-10.3); Creatinine, Serum 0.91 mg/dL (0.51-0.95); Magnesium 1.8 mg/dL (1.9-2.7); Potassium 3.8 mmol/L (3.5-5.0); eGFR CKD-EPI 65.4 (>60)
[2024-06-25] MEDS: Magnesium Sulfate 2 gm BAG 2 GM/50 ML BAG IVPB ONE (10:39)
[2024-06-25 14:42] VITALS: BP 114/63
[2024-06-25] MEDS: Enoxaparin 30 MG/0.3 ML SYR SUBCUT ONE (14:51)
== END 2024-06-25 15:00 | disposition home or self-care (01) ==
LOC: CHOA 09:10 → INTOOBSV 16:40 → MED 16:40 → SUATTDRO 16:40
PROVIDERS: ADMIT Internal Medicine Hematology & Oncology; ATTEND Internal Medicine